=== PATIENT | female | born 1980 | race Caucasian/White ===

== ENCOUNTER 2016-05-06 15:33 | Emergency (ER) | payer OTHER ==
[~2016-05-06] VITALS: Ht 170.2 cm; Wt 80.0 kg
[2016-05-06 15:37] VITALS: BP 127/86; PULSE 90; RESP 14; TEMP 98; O2SAT 99
--- NOTE | 2016-05-06 15:39 | PD ---
HPI Chief Complaint: Syncope/Near-Syncope Time Seen by Provider: 15:39 Travel History International Travel<30 days: No Contact w/Intl Traveler<30days: No Traveled to known affect area: No History of Present Illness HPI 35-year-old female came to the emergency room with history of lightheadedness and feeling like she was going to pass out while she was driving. Patient called 911 and was brought in by EMS. She said she was feeling some palpitations. Her vital signs here are within normal limit. She is on her period and has been bleeding heavily she said. She says she is feeling all better now and would like to go home. [facility] Past Medical History Narrative Medical List of her past medical history as reviewed from the nursing note. Social History Tobacco Use: Yes Allergies-Medications (Allergen,Severity, Reaction): Coded Allergies: No Known Allergies (Unverified , 05/06/16) Comments No known drug allergies. Reported Meds & Prescriptions Reported Meds & Active Scripts Active Reported Levothyroxine (Levothyroxine Sodium) 100 Mcg Tab 100 Mcg PO DAILY Narrative Medication List of her home medications reviewed from the nursing note. Review of Systems Except as stated in HPI: all other systems reviewed are Neg Physical Exam Narrative GENERAL: Awake, alert, no obvious distress SKIN: Warm and dry. HEAD: Atraumatic. Normocephalic. EYES: Pupils equal and round. No scleral icterus. No injection or drainage. ENT: No nasal bleeding or discharge. Mucous membranes pink and moist. NECK: Trachea midline. No JVD. CARDIOVASCULAR: Regular rate and rhythm. No murmur appreciated. RESPIRATORY: No accessory muscle use. Clear to auscultation. Breath sounds equal bilaterally. GASTROINTESTINAL: Abdomen soft, non-tender, nondistended. Hepatic and splenic margins not palpable. MUSCULOSKELETAL: No obvious deformities. No clubbing. No cyanosis. No edema. NEUROLOGICAL: Awake and alert. No obvious cranial nerve deficits. Motor grossly within normal limits. Normal speech. PSYCHIATRIC: Appropriate mood and affect; insight and judgment normal. Data Data Last Documented VS Vital Signs Date Time Temp Pulse Resp B/P Pulse Ox O2 Delivery O2 Flow Rate FiO2 05/06/16 15:45 86 16 127/86 100 Room Air 05/06/16 15:37 98.0 Orders Electrocardiogram (05/06/16 ) Iv Access Insert/Monitor (05/06/16 16:12) Ecg Monitoring (05/06/16 16:12) Oximetry (05/06/16 16:12) Sodium Chlor 0.9% 1000 Ml Inj (Ns 1000 M (05/06/16 16:12) Sodium Chloride 0.9% Flush (Ns Flush) (05/06/16 16:15) Ed Urine Pregnancytest Poc (05/06/16 16:12) MDM Medical Decision Making Medical Screen Exam Complete: Yes Emergency Medical Condition: Yes Medical Record Reviewed: Yes Interpretation(s) Twelve-lead EKG was reviewed by me. Normal sinus rhythm, normal axis, nonspecific ST-T wave changes. Heart rate of 84 bpm. Differential Diagnosis Dehydration, vasovagal, orthostatic hypotension Narrative Course 4:33 PM patient did not want to get any blood test done or any IV fluids. She was in full capacity to make decisions for herself and just wanted to leave. She understood the risks of leaving without any tests or diagnosis. She signed AMA. Procedures EKG Prior to Arrival: Yes Diagnosis Primary Impression: Pre-syncope Disposition: 07 AGAINST MEDICAL ADVICE Condition: Sindhu Montenegro MD May 06, 2016 15:39 Disposition: 07 AGAINST MEDICAL ADVICE Condition: Sindhu Montenegro MD May 06, 2016 15:39
[2016-05-06 15:45] VITALS: BP 127/86; PULSE 86; RESP 16; O2SAT 100
[2016-05-06] MEDS ORDERED: LEVO100T5 PO (15:49)
[2016-05-06] MEDS ORDERED: SODIUM CHLOR 0.9% 1000 ML INJ 1,000 ML IV SCH (16:12)
[2016-05-06] MEDS ORDERED: SODIUM CHLORIDE 0.9% FLUSH 5 ML FLUSH IVF PRN (16:15)
--- NOTE | 2016-05-07 10:35 | EKG ---
Date Performed: 05/06/2016 Time Performed: 15:48:47 PTAGE: 35 years EKG: Sinus rhythm NORMAL ECG NO PREVIOUS TRACING DOCTOR: Philipp Stoner Interpretating Date/Time 05/07/2016 10:33:52
== END 2016-05-06 16:37 | disposition left against medical advice (07) ==
LOC: NEPA 15:33
DX: R55 Syncope and collapse (principal)
CPT/HCPCS: 84703; 93005

== ENCOUNTER 2016-07-16 11:29 | Emergency (ER) | payer OTHER ==
[~2016-07-16 11:29] MED LIST: LEVO100T5 PO
[2016-07-16 11:31] VITALS: BP 116/81; PULSE 96; RESP 20; TEMP 98.5; O2SAT 100
[2016-07-16] MEDS ORDERED: ANXIETY MED (11:37)
[2016-07-16] MEDS ORDERED: SODIUM CHLOR 0.9% 1000 ML INJ 1,000 ML IV ONE ×2 (11:46→13:00)
--- NOTE | 2016-07-16 11:56 | PD ---
HPI Chief Complaint: General Weakness Time Seen by Provider: 11:40 Travel History International Travel<30 days: No Contact w/Intl Traveler<30days: No Traveled to known affect area: No History of Present Illness HPI Patient is a 36-year-old female who was brought to emergency room for evaluation of possible anxiety attack. Patient reports that she was outside of [facility] today, reports that she had an anxiety attack, reports that she felt lightheaded and reports that she felt near syncopal. Patient reports that she felt tingling to both her arms, reports that she felt as if she could not breathe. Patient reports that she has history of anxiety attacks as well as thyroid problems in the past. Patient denies any use of drugs or alcohol. Patient does admit to using medications for anxiety. Patient with no chest pain at this time. Reports palpitations. Patient reports that she is being did feel much better while in the emergency room. PFSH Past Medical History Anxiety: Yes Cancer: Yes (HODGKIN'S LYMPHOMA) Thyroid Disease: Yes ?: Not Past Surgical History Abdominal Surgery: Yes Appendectomy: Yes Other Surgery: Yes (PORT FOR CHEMO (SINCE REMOVED)) Social History Alcohol Use: No Tobacco Use: Yes Substance Use: No Allergies-Medications (Allergen,Severity, Reaction): Coded Allergies: No Known Allergies (Unverified , 07/16/16) Reported Meds & Prescriptions Reported Meds & Active Scripts Active Reported [Anxiety Med] Levothyroxine (Levothyroxine Sodium) 100 Mcg Tab 100 Mcg PO DAILY Review of Systems General / Constitutional: No: Fever Eyes: No: Visual changes HENT: No: Headaches Cardiovascular: Positive: Palpitations, No: Chest Pain or Discomfort Respiratory: No: Shortness of Breath Gastrointestinal: No: Abdominal Pain Genitourinary: No: Dysuria Musculoskeletal: No: Pain Skin: No Rash Neurologic: Positive: Weakness Psychiatric: Positive: Anxiety, No: Depression Endocrine: No: Polydipsia Hematologic/Lymphatic: No: Easy Bruising Physical Exam Narrative GENERAL: No acute distress, nontoxic SKIN: Warm and dry. HEAD: Atraumatic. Normocephalic. EYES: Pupils equal and round. No scleral icterus. No injection or drainage. ENT: No nasal bleeding or discharge. Mucous membranes pink and moist. NECK: Trachea midline. No JVD. CARDIOVASCULAR: Regular rate and rhythm. No murmur appreciated. RESPIRATORY: No accessory muscle use. Clear to auscultation. Breath sounds equal bilaterally. GASTROINTESTINAL: Abdomen soft, non-tender, nondistended. Hepatic and splenic margins not palpable. MUSCULOSKELETAL: No obvious deformities. No clubbing. No cyanosis. No edema. NEUROLOGICAL: Awake and alert. No obvious cranial nerve deficits. Motor grossly within normal limits. Normal speech. PSYCHIATRIC: Patient anxious on exam Data Data Last Documented VS Vital Signs Date Time Temp Pulse Resp B/P Pulse Ox O2 Delivery O2 Flow Rate FiO2 07/16/16 13:58 67 20 112/80 99 07/16/16 11:31 98.5 Orders Thyroid Stimulating Hormone (07/16/16 11:46) Drug Screen, Random Urine (07/16/16 11:46) Ed Urine Pregnancytest Poc (07/16/16 11:46) Complete Blood Count With Diff (07/16/16 11:46) Comprehensive Metabolic Panel (07/16/16 11:46) Ecg Monitoring (07/16/16 11:46) Iv Access Insert/Monitor (07/16/16 11:46) Sodium Chloride 0.9% Flush (Ns Flush) (07/16/16 12:00) Sodium Chlor 0.9% 1000 Ml Inj (Ns 1000 M (07/16/16 11:46) Urinalysis - C+S If Indicated (07/16/16 11:46) Lorazepam Inj (Ativan Inj) (07/16/16 12:00) Electrocardiogram (07/16/16 ) Chest, Single Ap (07/16/16 11:52) Sodium Chlor 0.9% 1000 Ml Inj (Ns 1000 M (07/16/16 13:00) Labs Laboratory Tests Test 07/16/16 11:55 White Blood Count 13.3 TH/MM3 Red Blood Count 4.67 MIL/MM3 Hemoglobin 14.1 GM/DL Hematocrit 43.0 % Mean Corpuscular Volume 92.0 FL Mean Corpuscular Hemoglobin 30.2 PG Mean Corpuscular Hemoglobin 32.8 % Concent Red Cell Distribution Width 14.1 % Platelet Count 310 TH/MM3 Mean Platelet Volume 9.0 FL Neutrophils (%) (Auto) % Lymphocytes (%) (Auto) % Monocytes (%) (Auto) % Eosinophils (%) (Auto) % Basophils (%) (Auto) % Neutrophils # (Auto) TH/MM3 Lymphocytes # (Auto) TH/MM3 Monocytes # (Auto) TH/MM3 Eosinophils # (Auto) TH/MM3 Basophils # (Auto) TH/MM3 CBC Comment AUTO DIFF Differential Total Cells 100 Counted Neutrophils % (Manual) 71 % Band Neutrophils % 3 % Lymphocytes % 21 % Monocytes % 4 % Eosinophils % 1 % Neutrophils # (Manual) 9.8 TH/MM3 Differential Comment FINAL DIFF MANUAL Platelet Estimate NORMAL Platelet Morphology Comment NORMAL Acanthocytes OCC [place]leau PRESENT Keratocytes OCC Urine Collection Type CLEAN CATCH Urine Color STRAW Urine Turbidity CLEAR Urine pH 6.5 Urine Specific [place] 1.007 Urine Protein NEG mg/dL Urine Glucose (UA) NEG mg/dL Urine Ketones NEG mg/dL Urine Occult Blood NEG Urine Nitrite NEG Urine Bilirubin NEG Urine Leukocyte Esterase NEG Urine Squamous Epithelial 0-5 /hpf Cells Urine Amorphous Sediment FEW Microscopic Urinalysis Comment CULT NOT INDICATED Urine Collection Time 1155 Sodium Level 142 MEQ/L Potassium Level 5.2 MEQ/L Chloride Level 108 MEQ/L Carbon Dioxide Level 28.1 MEQ/L Anion Gap 6 MEQ/L Blood Urea Nitrogen 10 MG/DL Creatinine 0.76 MG/DL Estimat Glomerular Filtration 86 ML/MIN Rate Random Glucose 93 MG/DL Calcium Level 9.0 MG/DL Total Bilirubin 0.5 MG/DL Aspartate Amino Transf 32 U/L (AST/SGOT) Alanine Aminotransferase 20 U/L (ALT/SGPT) Alkaline Phosphatase 72 U/L Total Protein 6.8 GM/DL Albumin 3.2 GM/DL Thyroid Stimulating Hormone 0.204 uIU/ML 3rd Gen Urine Opiates Screen NEG Urine Barbiturates Screen NEG Urine Amphetamines Screen NEG Urine Benzodiazepines Screen NEG Urine Cocaine Screen NEG Urine Cannabinoids Screen NEG [facility] Medical Decision Making Medical Screen Exam Complete: Yes Emergency Medical Condition: Yes Interpretation(s) EKG at 1158: sinus tach at 104bpm, qt/qtc: 326/403, no acute st or t wave changes Vital Signs Date Time Temp Pulse Resp B/P Pulse Ox O2 Delivery O2 Flow Rate FiO2 07/16/16 11:31 98.5 96 20 116/81 100 Differential Diagnosis Anxiety reaction, hyperthyroidism, arrhythmia, pneumothorax, electrolyte abnormality, drug abuse Narrative Course Patient is a 36-year-old female who presents to emergency room for evaluation of possible panic attack. As per patient, she was outside of [facility] today, reports that she felt panicky, reports that she felt lightheaded and felt as if she was going to faint. Patient reports that she felt tingling to both her hands, reports that she was brought to the emergency room for evaluation of her symptoms. Patient reports that she has had similar symptoms in the past, reports that they were due to anxiety. Overall, patient is nontoxic, will obtain EKG, labs, will monitor patient continue to monitor in ER. TSH as well as UDS ordered. Xray of chest ordered for evaluation of symptoms. Fluids as well as ativan ordered for patient Vital Signs Date Time Temp Pulse Resp B/P Pulse Ox O2 Delivery O2 Flow Rate FiO2 07/16/16 13:58 67 20 112/80 99 07/16/16 13:08 70 20 119/79 97 07/16/16 12:11 102 20 119/83 98 07/16/16 11:31 98.5 96 20 116/81 100 Last Impressions Chest X-Ray 07/16/16 1152 Signed Impressions: Service Date/Time: Saturday, July 16, 2016 12:24 - CONCLUSION: No acute cardiopulmonary disease identified. Chang Cuellar MD CBC & BMP Diagram 07/16/16 11:55 Patient reevaluated, patient reports that she is feeling much better at this time. Patient reports that she has history of anxiety reaction, reports that she is having a lot of problems at work, reports that work is" stressing her out " and in a way, reports that she didn't want to walk into work today and had a panic attack. Reports that she is feeling much better after Ativan was given to her. I did review all labs with patient in detail, history of hypothyroid, she will follow up with repeat lab work with her primary care doctor as she may need medication adjustment at this time. She will return to emergency room as needed. Diagnosis Primary Impression: Pre-syncope Additional Impressions: Anxiety Abnormal TSH Patient Instructions: General Instructions Departure Forms: Tests/Procedures, Work Release Enter return to work date: Jul 18, 2016 Additional Instructions: Please provide patient with a copy of her lab work at discharge Please return to the emergency room as needed Please call your primary care doctor for earliest follow-up, please bring your lab work as well as discharge instructions for follow-up Disposition: 01 DISCHARGE HOME Condition: Stable Juana Child DO Jul 16, 2016 11:56
[2016-07-16] MEDS ORDERED: SODIUM CHLORIDE 0.9% FLUSH 10 ML FLUSH IVF PRN (12:00)
[2016-07-16] MEDS ORDERED: LORazepam 2 MG/ML VIAL IV PUSH ONE (12:00)
[2016-07-16 12:11] VITALS: BP 119/83; PULSE 102; RESP 20; O2SAT 98
[2016-07-16 12:12] LABS: BLOOD, URINE NEG (NEG); GLUCOSE,URINE NEG (NEG); KETONE, URINE NEG (NEG); NITRITE,URINE NEG (NEG); PH, URINE 6.5 (5.0-8.5)
[2016-07-16 12:16] LABS: MEAN CORPUSCULAR HEMOGLOBIN 30.2 PG (27.0-34.0); MEAN CORPUSCULAR HGB CONC 32.8 % (32.0-36.0); PLATELET COUNT 310 TH/MM3 (150-450); RED BLOOD COUNT 4.67 MIL/MM3 (4.00-5.30); RED CELL DISTRIBUTION WIDTH 14.1 % (11.6-17.2); WHITE BLOOD COUNT 13.3 TH/MM3 (4.0-11.0)
[2016-07-16 12:20] LABS: HEMO FLAGS AUTO DIFF
[2016-07-16 12:21] LABS: CHLORIDE 108 MEQ/L (98-107); POTASSIUM 5.2 MEQ/L (3.5-5.1); SODIUM (NA) 142 MEQ/L (136-145)
[2016-07-16 12:25] LABS: ANION GAP 6 MEQ/L (5-15); BICARBONATE 28.1 MEQ/L (21.0-32.0); BLOOD UREA NITROGEN 10 MG/DL (7-18); COMMENT (UR) CULT NOT INDICATED; COMMENT2 (UR) MUCOUS PRESENT; CULTURE IF INDICATED CULT NOT INDICATED; METHOD OF COLLECTION CLEAN CATCH; SQUAMOUS EPITHELIAL CELL URINE 0-5 /hpf (0-5); URINE COLOR STRAW (YELLW/STRAW)
[2016-07-16 12:28] LABS: ALT (GPT) 20 U/L (10-53); AST (GOT) 32 U/L (15-37); GLOMERULAR FILTRATION RATE 86 ML/MIN (>89)
[2016-07-16 12:29] LABS: AMPHETAMINE, URINE NEG (NEG); BARBITURATES, URINE NEG (NEG); TOTAL BILIRUBIN ADULT 0.5 MG/DL (0.2-1.0)
[2016-07-16 12:31] LABS: ALKALINE PHOSPHATASE 72 U/L (45-117)
[2016-07-16 12:33] LABS: COCAINE, URINE NEG (NEG)
[2016-07-16 12:37] LABS: BANDS 3 % (0-6); EOSINOPHILS 1 % (0-4); NEUTROPHIL # MANUAL DIFF 9.8 TH/MM3 (1.8-7.7); POLYS (SEG NEUTROPHILS) 71 % (16-70); WBC DIFF SAMPLE 100
[2016-07-16 12:38] LABS: ACANTHOCYTES OCC (NORMAL); KERATOCYTES OCC (NORMAL); PLATELET ESTIMATE SMEAR NORMAL (NORMAL); PLATELET MORPHOLOGY NORMAL (NORMAL); ROULEAUX PRESENT (NORMAL); SCAN/DIFF FINAL DIFF MANUAL
[2016-07-16 13:08] VITALS: BP 119/79; PULSE 70; RESP 20; O2SAT 97
--- NOTE | 2016-07-16 13:37 | RADHPO ---
EXAM DATE/TIME: 07/16/2016 12:24 [facility] COMPARISON: No previous studies available for comparison. INDICATIONS : Patient states left arm numbness, and chest pains. MEDICAL HISTORY : Hodgkins disease. SURGICAL HISTORY : Lymphnodes removed ENCOUNTER: Initial ACUITY: 1 day PAIN SCORE: 4/10 LOCATION: Bilateral chest FINDINGS: Single AP view of the chest. The lungs are clear. Cardiomediastinal silhouette within normal limits. No evidence of pleural effusion or pneumothorax. CONCLUSION: No acute cardiopulmonary disease identified. Chang Cuellar MD on July 16, 2016 at 13:35 Board Certified Radiologist. This report was verified electronically.
[2016-07-16 13:58] VITALS: BP 112/80; PULSE 67; RESP 20; O2SAT 99
--- NOTE | 2016-07-16 22:41 | EKG ---
Date Performed: 07/16/2016 Time Performed: 11:58:36 PTAGE: 36 years EKG: Sinus tachycardia Possible left atrial abnormality Borderline ECG PREVIOUS TRACING : 05/06/2016 15.48 DOCTOR: Collin Quinonez Interpretating Date/Time 07/16/2016 22:40:03
== END 2016-07-16 14:52 | disposition home or self-care (01) ==
LOC: PHED 11:29
DX: F41.9 Anxiety disorder, unspecified (principal); R55 Syncope and collapse; R94.6 Abnormal results of thyroid function studies; Z72.0 Tobacco use
CPT/HCPCS: 71010; 80053; 80307; 81001; 84443; 84703; 85007; 85027; 93005; 96361; 96374; 99284; J2060; J7030

== ENCOUNTER 2017-03-12 22:09 | Emergency (ER) | payer MEDICAID, OTHER ==
[~2017-03-12 22:09] MED LIST changes: +ANXIETY MED
[2017-03-12 22:10] VITALS: BP 130/83; PULSE 92; RESP 16; TEMP 98.5; O2SAT 98
[2017-03-12] MEDS ORDERED: MEDR4PAK PO (23:36)
--- NOTE | 2017-03-12 23:40 | PD ---
HPI Chief Complaint: Musculoskeletal Complaint Time Seen by Provider: 23:26 Travel History International Travel<30 days: No Contact w/Intl Traveler<30days: No Traveled to known affect area: No History of Present Illness HPI Patient comes in complaining of left leg pain that radiates from her foot to her hip and describes a sharp stabbing sensation. Patient states she's had this ongoing intermittently for years and has previously got Relief from Cortisone Injections. Patient States This Episode Is Been Going on since Yesterday. Patient Denies Any Fevers, Loss or Change in Bowel or Bladder, abdominal pain, IV drug use, , trauma, or back pain. Patient denies anything making it better. Pain is worse with certain movement and walking. PFSH Past Medical History Anxiety: Yes Cancer: Yes (HODGKIN'S LYMPHOMA) Thyroid Disease: Yes ?: Not LMP: 03/10/17 Past Surgical History Abdominal Surgery: Yes Appendectomy: Yes Cholecystectomy: Yes Other Surgery: Yes (PORT FOR CHEMO (SINCE REMOVED)) Social History Alcohol Use: No Tobacco Use: Yes Substance Use: No Allergies-Medications (Allergen,Severity, Reaction): Coded Allergies: No Known Allergies (Unverified Adverse Reaction, Unknown, 03/12/17) Reported Meds & Prescriptions Reported Meds & Active Scripts Active Medrol Dosepak (Methylprednisolone) 4 Mg Dspk 4 Mg PO DIRECTED Per Pharmacist direction Reported [Anxiety Med] Levothyroxine (Levothyroxine Sodium) 100 Mcg Tab 100 Mcg PO DAILY Review of Systems Except as stated in HPI: all other systems reviewed are Neg Physical Exam Narrative GENERAL: Well-developed, overly nourished, in no acute distress, and non-ill appearing. SKIN: Focused skin assessment warm and dry. HEAD: Atraumatic. Normocephalic. EYES: Pupils equal and round. EOMI. No scleral icterus. No injection or drainage. ENT: No nasal bleeding or discharge. Mucous membranes pink and moist. NECK: Trachea midline. Supple. No nuclear rigidity. RESPIRATORY: No accessory muscle use. No respiratory distress. MUSCULOSKELETAL: No obvious deformities. No clubbing. No cyanosis. No edema. Full range of motion. Hip: FROM and equal BL with passive flexion, extension, Abduction, Adduction, and internal/external rotation. Pulses equal BL distal to injury. Capillary refill less than 2 seconds distal to injury and equal BL. FROM distal to injury and equal BL. Strength distal to injury equal BL. NV intact distal to injury and equal BL. Plantar flexion and dorsal flexion equal BL. Dorsal pulses equal BL. Sensation equal BL 1st web space. NEUROLOGICAL: Awake and alert. No obvious cranial nerve deficits. Motor grossly within normal limits. Normal speech. PSYCHIATRIC: Appropriate mood and affect; insight and judgment normal. Data Data Last Documented VS Vital Signs Date Time Temp Pulse Resp B/P (MAP) Pulse Ox O2 Delivery O2 Flow Rate FiO2 03/12/17 22:10 98.5 92 16 130/83 (99) 98 Room Air Orders Orders Dexamethasone Inj (Decadron Inj) (03/12/17 23:45) Ed Discharge Order (03/12/17 23:40) MDM Medical Decision Making Medical Screen Exam Complete: Yes Emergency Medical Condition: Yes Differential Diagnosis Fracture, strain, sciatica, contusion Narrative Course There was no history of recent fall or trauma. There was no evidence to support genitourinary etiology. There is also no evidence to suggest vascular pathology such as AAA dissection. No fevers or other evidence to suspect infectious processes, abscess, osteomyelitis etc. The patients neurological exam is normal with normal motor and sensory. There is no saddle paresthesias reported and no bowel or bladder incontinence or retention. I suspect the pain is mechanical in nature with sciatica. Clinical suspicion, plan of care and management was discussed with the patient. The patient was instructed to follow up with their health care provider. The patient was also instructed to return if the pain worsened, changed, or developed weakness or bowel or bladder trouble. The patient agreed with plan. Patient in no obvious distress upon re-evaluation. Patient was asked if they wanted to speak to my attending, which the patient did not wish to do at this time. Any questions/concerns in reference to patient diagnosis/condition discussed and clarified prior to patient's discharge. Reinforced sheer importance of close follow up with patient's primary physician or primary care clinic. Instructed patient to return to ED immediately, if symptoms return/ worsen. Patient showed understanding of above instructions. Further instructions and recommendations were detailed in discharge paperwork. Patient ambulated without difficulty out of ED at discharge. Diagnosis Primary Impression: Sciatica of left side Patient Instructions: General Instructions, Sciatica (ED) Additional Instructions: Follow-up with your primary care physician next week for reevaluation. Take all medication as prescribed. Return to the emergency department if symptoms get worse. Med/Other Pt SpecificInfo: Prescription(s) given Scripts Methylprednisolone Dosepak (Medrol Dosepak) 4 Mg Dspk 4 MG PO DIRECTED, #1 DSPK 0 Refills Per Pharmacist direction Prov: Osmin Lundy MD 03/12/17 Disposition: 01 DISCHARGE HOME Condition: Stable Sanchez Carlson Mar 12, 2017 23:40
[2017-03-12] MEDS ORDERED: DEXAMETHASONE SOD PHOS 20 MG/5 ML VIAL IM ONE (23:45)
== END 2017-03-13 00:30 | disposition home or self-care (01) ==
LOC: NEPD 22:09
DX: M54.32 Sciatica, left side (principal)
CPT/HCPCS: 96372; 99283; J1100

== ENCOUNTER 2017-05-18 09:51 | Emergency (ER) | payer MEDICAID ==
[~2017-05-18] VITALS: Ht 177.8 cm; Wt 80.0 kg
[~2017-05-18 09:51] MED LIST changes: +MEDR4PAK PO
[2017-05-18 09:54] VITALS: BP 122/74; PULSE 120; RESP 16; TEMP 97.8; O2SAT 100
[2017-05-18] MEDS ORDERED: HYDR50TA94 PO (10:44)
--- NOTE | 2017-05-18 11:04 | PD ---
HPI Chief Complaint: Cold / Flu Symptoms Time Seen by Provider: 10:49 Travel History International Travel<30 days: No Contact w/Intl Traveler<30days: No Traveled to known affect area: No History of Present Illness HPI 36-year-old female presents to emergency department with anxiety, cough, congestion, and feeling "dehydrated" for approximately 3 days. States the pain in her left arm is sore and described as achy, mild, and worse with palpation. Denies any injuries. Since yesterday EMS was called her work and she was diagnosed with anxiety. Patient denies shortness of breath or chest pain. Denies abdominal pain or back pain. PFSH Past Medical History Anxiety: Yes Cancer: Yes (HODGKIN'S LYMPHOMA) Thyroid Disease: Yes ?: Not LMP: NOW Past Surgical History Abdominal Surgery: Yes Appendectomy: Yes Cholecystectomy: Yes Other Surgery: Yes (PORT FOR CHEMO (SINCE REMOVED)) Social History Alcohol Use: No Tobacco Use: Yes (1PPD) Substance Use: No Allergies-Medications (Allergen,Severity, Reaction): Coded Allergies: No Known Allergies (Unverified Adverse Reaction, Unknown, 05/18/17) Reported Meds & Prescriptions Reported Meds & Active Scripts Active Tamiflu (Oseltamivir Phosphate) 75 Mg Cap 75 Mg PO DAILY 10 Days Reported Hydroxyzine HCl 50 Mg Tab 50 Mg PO BID PRN Levothyroxine (Levothyroxine Sodium) 100 Mcg Tab 100 Mcg PO DAILY Review of Systems Except as stated in HPI: all other systems reviewed are Neg Physical Exam Narrative GENERAL: WD, WN, anxious appearing SKIN: Warm and dry. HEAD: Normocephalic. EYES: No scleral icterus. No injection or drainage. NECK: Supple, trachea midline. No JVD or lymphadenopathy. CARDIOVASCULAR: Regular rate and rhythm without murmurs, gallops, or rubs. RESPIRATORY: Breath sounds equal bilaterally. No accessory muscle use. GASTROINTESTINAL: Abdomen soft, non-tender, nondistended. MUSCULOSKELETAL: No cyanosis, or edema. BACK: Nontender without obvious deformity. No CVA tenderness. Data Data Last Documented VS Vital Signs Date Time Temp Pulse Resp B/P (MAP) Pulse Ox O2 Delivery O2 Flow Rate FiO2 05/18/17 12:08 98.0 86 98 05/18/17 09:54 16 122/74 (90) Orders Orders Influenzae A/B Antigen (05/18/17 10:49) Ed Discharge Order (05/18/17 12:15) [facility] Medical Decision Making Medical Screen Exam Complete: Yes Emergency Medical Condition: Yes Differential Diagnosis Influenza, viral syndrome, upper respiratory infection Narrative Course 36-year-old female presents to emergency department with anxiety, cough, congestion, and feeling "dehydrated" for approximately 3 days. States the pain in her left arm is sore and described as achy, mild, and worse with palpation. Denies any injuries. Since yesterday EMS was called her work and she was diagnosed with anxiety. Patient denies shortness of breath or chest pain. Denies abdominal pain. She explained that [employer] was called to her work today for what she described as a panic attack. She was cleared by them after evaluation and patient did not want to go to the hospital at that time. Vital signs stable, rate improved to 88 after recheck and relaxation. PO challenge successful today. Pt says she she feels better after hydrating. Physical exam findings consistent with an anxious 36y female in no acute distress. The upper extremities are neurovascularly intact without deformities. Entire arm is TTP however, she is tender to palpation everywhere I touch. She has FROM of all extremities. Flu negative today although she does have a viral syndrome. Patient will receive Tamiflu for prophylaxis as she does have sick contacts at work. Pt is reassured that her symptoms appear to be the result of her viral syndrome as she is tender everywhere. Diagnosis Primary Impression: Viral syndrome Referrals: Primary Care Physician Additional Instructions: Follow-up with primary care physician this week. If your symptoms persist or worsen return to the emergency. Remained active as tolerated to prevent worsening of your symptoms. Ensure you have adequate fluid intake You may alternate tylenol or motrin per package instructions for your symptoms. You are receiving Tamiflu as a prophylactic measure as you are exposed to the flu virus. Scripts Oseltamivir (Tamiflu) 75 Mg Cap 75 MG PO DAILY for Mgmt Viral Infection for 10 Days, #10 CAP 0 Refills Prov: Gina Gallardo 05/18/17 Disposition: 01 DISCHARGE HOME Condition: Stable Gina Gallardo May 18, 2017 11:04
[2017-05-18 12:08] VITALS: PULSE 86; TEMP 98; O2SAT 98
[2017-05-18] MEDS ORDERED: OSEL75 PO (12:09)
== END 2017-05-18 13:11 | disposition home or self-care (01) ==
LOC: PHED 09:51 → PHEFT 13:11
DX: B34.9 Viral infection, unspecified (principal); F41.9 Anxiety disorder, unspecified; E07.9 Disorder of thyroid, unspecified; F17.200 Nicotine dependence, unspecified, uncomplicated; Z79.899 Other long term (current) drug therapy
CPT/HCPCS: 87804; 99283

== ENCOUNTER 2017-06-11 20:38 | Emergency (ER) | payer MEDICAID ==
[~2017-06-11 20:38] MED LIST changes: -ANXIETY MED; +HYDR50TA94 PO; -MEDR4PAK PO; +OSEL75 PO
[2017-06-11 20:43] VITALS: BP 128/85; PULSE 102; RESP 20; TEMP 98.4; O2SAT 98
[2017-06-11] MEDS ORDERED: KETOROLAC TROMETHAMINE 60 MG/2 ML (IM) VIAL IM ONE (21:15)
[2017-06-11] MEDS ORDERED: ORPHENADRINE INJ 60 MG/2 ML AMP IM ONE (21:15)
--- NOTE | 2017-06-11 21:25 | PD ---
HPI Chief Complaint: Musculoskeletal Complaint Time Seen by Provider: 21:09 Travel History International Travel<30 days: No Contact w/Intl Traveler<30days: No Traveled to known affect area: No History of Present Illness HPI 36-year-old female presents to the emergency department for 2 weeks of left upper extremity pain with progressive worsening symptoms. Patient denies any redness or swelling pallor or coolness of the extremity. Patient denies any known injury. Patient has taken ibuprofen without symptom relief. Patient was recently treated within the past 3 weeks for influenza with resolution of viral illness symptoms. Patient had no axillary lymphadenopathy. Patient denies any fever or chills. Patient denies any chest pain or shortness of breath or pleuritic chest pain. Patient has remote history of non-Hodgkin's lymphoma. Patient also underwent thyroidectomy and had previous [id number] that has been removed. [facility] Past Medical History Narrative Medical Anxiety, non-Hodgkin's lymphoma, Pmodyi-l-Olks status post removal, thyroidectomy, hypothyroidism, appendectomy cholecystectomy; tobacco use; nursing notes reviewed Anxiety: Yes Cancer: Yes (HODGKIN'S LYMPHOMA) Thyroid Disease: Yes Tetanus Vaccination: Unknown Influenza Vaccination: No ?: Not LMP: NOW Past Surgical History Abdominal Surgery: Yes Appendectomy: Yes Cholecystectomy: Yes Other Surgery: Yes (PORT FOR CHEMO (SINCE REMOVED)) Social History Alcohol Use: No Tobacco Use: Yes (1PPD) Substance Use: No Allergies-Medications (Allergen,Severity, Reaction): Coded Allergies: No Known Allergies (Verified Adverse Reaction, Unknown, 06/11/17) Reported Meds & Prescriptions Reported Meds & Active Scripts Active Reported Hydroxyzine HCl 50 Mg Tab 50 Mg PO BID PRN Levothyroxine (Levothyroxine Sodium) 100 Mcg Tab 100 Mcg PO DAILY Review of Systems Except as stated in HPI: all other systems reviewed are Neg General / Constitutional: No: Fever, Chills Eyes: No: Visual changes HENT: Positive: Neck Stiffness, No: Headaches, Neck Pain Cardiovascular: No: Chest Pain or Discomfort Respiratory: No: Shortness of Breath, Pleuritic Pain Gastrointestinal: No: Nausea, Vomiting Genitourinary: No: Flank Pain Musculoskeletal: Positive: Pain (LUE), No: Myalgias, Arthralgias, Weakness, Cramping, Edema Skin: No Rash Neurologic: No: Weakness, Dizziness, Syncope, Focal Abnormalities, Coordination Problem Psychiatric: No: Anxiety Hematologic/Lymphatic: No: Lymph Node Enlargement Physical Exam Narrative GENERAL: Well-developed well-nourished female in no acute distress or respiratory distress SKIN: Warm and dry. HEAD: Normocephalic. EYES: No scleral icterus. No injection or drainage. NECK: Supple, trachea midline. No JVD or lymphadenopathy. CARDIOVASCULAR: Regular rate and rhythm without murmurs, gallops, or rubs. RESPIRATORY: Breath sounds equal bilaterally. No accessory muscle use. GASTROINTESTINAL: Abdomen soft, non-tender, nondistended. MUSCULOSKELETAL: No cyanosis, or edema. 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 No left axillary lymphadenopathy. No rash. BACK: Nontender without obvious deformity. No CVA tenderness. Data Data Last Documented VS Vital Signs Date Time Temp Pulse Resp B/P (MAP) Pulse Ox O2 Delivery O2 Flow Rate FiO2 06/11/17 20:43 98.4 102 20 128/85 (99) 98 Orders Orders Chest, Single Ap (06/11/17 ) Humerus (Min 2vws) (06/11/17 ) Forearm (2vws) (06/11/17 ) Ed Urine Pregnancytest Poc (06/11/17 21:09) Ketorolac Inj (Toradol Inj) (06/11/17 21:15) Orphenadrine Inj (Norflex Inj) (06/11/17 21:15) Dexamethasone Inj (Decadron Inj) (06/11/17 22:30) MDM Medical Decision Making Medical Screen Exam Complete: Yes Emergency Medical Condition: Yes Medical Record Reviewed: Yes Interpretation(s) Vital Signs Date Time Temp Pulse Resp B/P (MAP) Pulse Ox O2 Delivery O2 Flow Rate FiO2 06/11/17 20:43 98.4 102 20 128/85 (99) 98 Differential Diagnosis Trapezius strain/spasm; cervical radiculopathy, brachial plexopathy, shingles; also consider DVT limb ischemia malignancy Narrative Course Patient ordered injection of Toradol 60 mg IM and Norflex 60 mg IM Imaging studies reveal no acute abnormality; patient declined Norflex; administered Decadron 8 mg IM [place] patient is stable for outpatient management will place patient on no duty as she uses left upper extremity repetitively and her type of work recommend moist heat intermittently for the next 12-24 hours and then prescribe Robaxin along with a Medrol Dosepak to see if symptoms will respond to conservative management. Patient is aware should she have ongoing symptoms she will require require further evaluation and imaging. Diagnosis Primary Impression: Trapezius muscle spasm Additional Impression: Cervical radiculopathy Referrals: Primary Care Physician call for appointment Patient Instructions: General Instructions Departure Forms: Tests/Procedures, Work Release Special Instructions: no work x 2 days Additional Instructions: No work 2 days Follow-up with primary care provider Return to the emergency department for any concerns or change in condition May use moist heat intermittently to left upper back and neck area for the next 1224 hrs. Take medications as prescribed While taking Medrol Dosepak/steroid taper do not take nonsteroidal anti- inflammatory medications such as ibuprofen/Advil/Motrin or Naprosyn/naproxen/ Aleve Med/Other Pt SpecificInfo: Prescription(s) given Scripts Methocarbamol (Robaxin) 750 Mg Tab 750 MG PO Q6HR for Muscle Spasm, #12 TAB 0 Refills Prov: Yeni Ley MD 06/11/17 Methylprednisolone Dosepak (Medrol Dosepak) 4 Mg Dspk 4 MG PO DIRECTED, #1 DSPK 0 Refills Per Pharmacist direction Prov: Yeni Ley MD 06/11/17 Disposition: 01 DISCHARGE HOME Condition: Stable Yeni Ley MD Jun 11, 2017 21:25
--- NOTE | 2017-06-11 21:45 | RADRPT ---
EXAM DATE/TIME: 06/11/2017 21:23 [facility] COMPARISON: CHEST ONE VIEW EMPLOYMED ONLY, February 07, 2016, 15:46. CHEST SINGLE AP, July 16, 2016, 12:24. INDICATIONS : Left side chest pain for one month with no known trauma MEDICAL HISTORY : None. SURGICAL HISTORY : None. ENCOUNTER: Initial ACUITY: 1 month PAIN SCORE: 5/10 LOCATION: Left chest FINDINGS: The heart is normal in size. There are old calcified nodes in the subcarinal region. The lungs are clear. The visualized bony structures are grossly intact. CONCLUSION: 1. Old calcified mediastinal nodes. 2. The lungs are clear. 3. Stable compared to previous dated 02/07/16. Sandoval Gee MD on June 11, 2017 at 21:42 Board Certified Radiologist. This report was verified electronically.
--- NOTE | 2017-06-11 21:45 | RADRPT ---
EXAM DATE/TIME: 06/11/2017 21:23 [facility] COMPARISON: CHEST SINGLE AP, July 16, 2016, 12:24. INDICATIONS : Left upper arm pain for 1 month with no known injury MEDICAL HISTORY : None. SURGICAL HISTORY : None. ENCOUNTER: Initial ACUITY: 1 month PAIN SCORE: 9/10 LOCATION: Left entire humerus FINDINGS: Two view examination of the left humerus demonstrates no evidence of fracture or dislocation. Bony m ineralization is normal. The soft tissue structures are intact. CONCLUSION: 1. No acute bony abnormality identified. Sandoval Gee MD on June 11, 2017 at 21:43 Board Certified Radiologist. This report was verified electronically.
--- NOTE | 2017-06-11 21:46 | RADRPT ---
EXAM DATE/TIME: 06/11/2017 21:23 [facility] COMPARISON: CHEST SINGLE AP, July 16, 2016, 12:24. INDICATIONS : Left forearm pain for 1 month with no known injury MEDICAL HISTORY : None. SURGICAL HISTORY : None. ENCOUNTER: Initial ACUITY: 1 month PAIN SCORE: 8/10 LOCATION: Left entire forearm FINDINGS: Two view examination of the left forearm demonstrates no evidence of fracture or dislocation. Bony m ineralization is normal. The soft tissue structures are intact. CONCLUSION: 1. No acute bony abnormality identified. Sandoval Gee MD on June 11, 2017 at 21:44 Board Certified Radiologist. This report was verified electronically.
[2017-06-11] MEDS ORDERED: DEXAMETHASONE SOD PHOS 4 MG/ML VIAL IM ONE (22:30)
[2017-06-11] MEDS ORDERED: ROBA750T PO (22:45)
[2017-06-11] MEDS ORDERED: MEDR4PAK PO (22:45)
[2017-06-11 22:52] VITALS: BP 131/93; PULSE 93; RESP 16; O2SAT 98
== END 2017-06-11 23:15 | disposition home or self-care (01) ==
LOC: PHEFT 20:38
DX: M62.838 Other muscle spasm (principal); M54.12 Radiculopathy, cervical region; F17.210 Nicotine dependence, cigarettes, uncomplicated; Z85.72 Personal history of non-Hodgkin lymphomas
CPT/HCPCS: 71045; 73060; 73090; 84703; 96372; 99284; J1100; J1885